=== PATIENT | male | born 1955 | race Caucasian/White ===

== ENCOUNTER 2021-11-11 01:29 | Day surgery (SDC) | payer OTHER, SELFPAY ==
[2021-10-27 13:21] VITALS: BMI 26.4
[2021-11-11 12:13] VITALS: BP 141/86; PULSE 77; RESP 18; TEMP 36.7; O2SAT 96
[2021-11-11] MEDS: LACTATED RINGERS 1,000 ML 150 ML IV CONT (12:16)
--- NOTE | 2021-11-11 12:59 | WPDGICN ---
Assessment and Plan Assessment and plan (1) Encounter for screening colonoscopy: Code(s): Z12.11 - Encounter for screening for malignant neoplasm of colon Status: Acute Assessment and Plan: Patient presents for screening colonoscopy. He appears to be at average risk for colon polyps. GI Consult Note Consult date/time: 11/11/21 12:59 HPI: Vinh Rodriguez is a 66 year old male Presents for screening colonoscopy. Patient's current weight appetite and bowel movements are normal. He denies abdominal pain. Patient has had no bleeding. Family history is noncontributory. Review of Systems Review of Systems: All systems reviewed & are unremarkable except as noted in HPI and below PMFSH Past Medical History Medical History (Updated 11/11/21 @ 13:01 by Jose Portillo MD) Environmental allergies Hypothyroid Rosacea Surgical History Surgical History History of right inguinal hernia repair 1956 History of tonsillectomy 1959 Family History Family History Father Heart disease Mother Dementia Social History Social History Smoking status: Never smoker Alcohol intake: current Drinks per week: 7 Alcohol use details: 1/2 bottle wine daily Substance use: never Substance use type: does not use Living arrangements: with family Gender identity (if verbalized by the patient): Male Sexual Orientation (if Verbalized by the Patient): Straight or Heterosexual Spiritual care concerns: No Agree to blood products: Yes Meds Home Medications and Allergies Home Medications Medication Instructions Recorded Confirmed Type loratadine 10 mg tablet 10 mg PO DAILY PRN 10/01/21 10/27/21 History ergocalciferol (vitamin D2) 1,250 1,250 mcg PO WEEKLY #12 cap 10/09/21 10/27/21 Rx mcg (50,000 unit) capsule levothyroxine 50 mcg tablet 50 mcg PO DAILY #60 tablet 10/09/21 10/27/21 Rx Allergies Allergy/AdvReac Type Severity Reaction Status Date / Time No Known Allergies Allergy Verified 11/11/21 12:12 Vital Signs Vital Signs - 24 hr 11/11/21 12:13 Temperature 98.0 F Pulse Rate 77 Respiratory Rate 18 Blood Pressure 141/86 H Pulse Oximetry 96 Exam Narrative: Physical exam reveals patient to be alert. Vital signs are stable. HEENT exam is unremarkable. Patient is anicteric. Lungs are clear to auscultation and percussion. Heart is without murmur or extra sounds. Abdominal exam bowel sounds are present soft nontender with no hepatosplenomegaly . Digital external rectal exam is normal.
[2021-11-11 13:37] VITALS: BP 106/68; PULSE 91; RESP 22; O2SAT 94
[2021-11-11 13:47] VITALS: BP 113/78; PULSE 82; RESP 21; O2SAT 97
[2021-11-11 13:57] VITALS: BP 121/74; PULSE 71; RESP 16; O2SAT 99
== END 2021-11-11 14:14 | disposition home or self-care (01) ==
PROVIDERS: PCP Family Medicine; Visit Provider Internal Medicine Gastroenterology
PROC: 0DJD8ZZ Inspection of Lower Intestinal Tract, Via Natural or Artificial Opening Endoscopic (ICD-10-PCS; CPT 45378; principal; 2021-11-11 13:30)
DX: Z12.11 Encounter for screening for malignant neoplasm of colon (principal); K64.8 Other hemorrhoids; E03.9 Hypothyroidism, unspecified
CPT/HCPCS: G0121; J2704; J7120

== ENCOUNTER 2022-05-27 11:58 | Outpatient (CLI) | payer OTHER, SELFPAY ==
[2022-05-27 18:54] LABS: Alanine Aminotransferase 24 U/L (6-50); Albumin Level 4.2 g/dL (3.5-5.1); Alkaline Phosphatase 85 U/L (38-126); Anion Gap 11 mmol/L (8-16); Aspartate Amino Transferase 50 U/L (17-59); Bilirubin,Total 0.4 mg/dL (0.2-1.3); Blood Urea Nitrogen 15 mg/dL (9-20); Calcium 8.9 mg/dL (8.4-10.2); Carbon Dioxide 27 mmol/L (22-30); Chloride 105 mmol/L (98-107); Estimated Glomerular Filt Rate > 60; Glucose 98 mg/dL (65-110); Potassium 4.7 mmol/L (3.4-5.0); Sodium 143 mmol/L (137-145)
[2022-05-27 19:30] LABS: Vitamin D 25 Hydroxy 43.8 ng/mL
== END 2022-05-27 11:59 | disposition home or self-care (01) ==
LOC: ANHGOSHLAB 11:59
PROVIDERS: PCP Family Medicine; Visit Provider Family Medicine
DX: E03.9 Hypothyroidism, unspecified (principal); E55.9 Vitamin D deficiency, unspecified
CPT/HCPCS: 36415; 80053; 82306; 84443

== ENCOUNTER 2022-10-07 09:59 | Outpatient (CLI) | payer OTHER, SELFPAY ==
[2022-10-07 19:00] LABS: Basophils Percent Auto 0.5 % (0.2-1.2); Eosinophils Percent Auto 0.5 % (0-4.4); Hematocrit 48.4 % (42.0-52.0); Hemoglobin 15.6 g/dL (14.0-18.0); Immature Granulocyte Absolute 0.01 K/mm3 (0.00-0.031); Immature Granulocyte Percent A 0.2 % (0-0.5); Lymphocytes Percent Auto 22.6 % (18.3-44.2); Mean Corpuscular HGB Conc 32.2 g/dl (32-36); Mean Corpuscular Hemoglobin 28.9 pg (26-34); Mean Corpuscular Volume 89.8 fl (80-100); Monocytes Absolute Auto 0.5 K/mm3 (0.1-0.6); Monocytes Percent Auto 7.3 % (2.6-8.5); Neutrophils Absolute Auto 4.3 K/mm3 (1.3-6.7); Neutrophils Percent Auto 68.9 % (45.5-73.1); Platelet Count Result 257 k/mm3 (150-375); Red Blood Count 5.39 M/mm3 (4.6-6.20); Red Cell Distribution Width 14.2 % (11.5-14.5); White Blood Count 6.2 K/mm3 (4.5-10.0)
[2022-10-07 19:09] LABS: Alanine Aminotransferase 22 U/L (6-50); Albumin Level 4.1 g/dL (3.5-5.1); Alkaline Phosphatase 82 U/L (38-126); Anion Gap 7 mmol/L (8-16); Aspartate Amino Transferase 35 U/L (17-59); Bilirubin,Total 0.7 mg/dL (0.2-1.3); Blood Urea Nitrogen 18 mg/dL (9-20); Calcium 8.7 mg/dL (8.4-10.2); Carbon Dioxide 29 mmol/L (22-30); Chloride 102 mmol/L (98-107); Cholesterol 218 mg/dL (0-200); Estimated Glomerular Filt Rate > 60; Glucose 84 mg/dL (65-110); HDL Direct 34 mg/dL; Potassium 4.6 mmol/L (3.4-5.0); Sodium 138 mmol/L (137-145); Triglycerides 211 mg/dL (<150)
[2022-10-07 19:20] LABS: LDL Cholesterol Direct 117 mg/dL
[2022-10-07 19:36] LABS: Prostate Specific Antigen 11.4 ng/mL (< OR = 4.0)
[2022-10-07 19:50] LABS: Vitamin D 25 Hydroxy 41.1 ng/mL
[2022-10-08 07:27] LABS: Free T4 Free Thyroxine Reflex 1.53 ng/dL (0.78-2.19)
[2022-10-08 08:09] LABS: Total Triiodothyronine (T3) 1.57 NG/ML (0.97-1.69)
== END 2022-10-07 10:00 | disposition home or self-care (01) ==
LOC: ANHGOSHLAB 10:02
PROVIDERS: PCP Family Medicine; Visit Provider Nurse Practitioner
DX: E78.5 Hyperlipidemia, unspecified (principal); Z12.5 Encounter for screening for malignant neoplasm of prostate; E03.9 Hypothyroidism, unspecified; E55.9 Vitamin D deficiency, unspecified
CPT/HCPCS: 36415; 80053; 80061; 82306; 84153; 84439; 84443; 84480; 85025; G0103

== ENCOUNTER 2022-10-13 14:29 | Outpatient (CLI) | payer OTHER, SELFPAY | END 2022-10-13 14:30 | disposition home or self-care (01) | LOC: ANHAUDIO 14:29 | PROVIDERS: PCP Family Medicine; Visit Provider Nurse Practitioner | DX: H91.90 Unspecified hearing loss, unspecified ear (principal) | CPT/HCPCS: 92557; 92567 ==

== ENCOUNTER 2023-04-07 09:53 | Outpatient (CLI) | payer OTHER, SELFPAY | END 2023-04-07 09:54 | disposition home or self-care (01) | LOC: ANHGOSHLAB 09:54 | PROVIDERS: PCP Family Medicine; Visit Provider Family Medicine | DX: E03.9 Hypothyroidism, unspecified (principal) | CPT/HCPCS: 36415; 84443 ==

== ENCOUNTER 2023-10-13 08:21 | Outpatient (CLI) | payer OTHER, SELFPAY ==
[2023-10-13 13:43] LABS: Basophils Percent Auto 0.7 % (0.2-1.2); Eosinophils Absolute Auto 0.1 K/mm3 (0-0.3); Eosinophils Percent Auto 0.9 % (0-4.4); Hematocrit 48.5 % (42.0-52.0); Hemoglobin 15.8 g/dL (14.0-18.0); Immature Granulocyte Absolute 0.02 K/mm3 (0.00-0.031); Immature Granulocyte Percent A 0.4 % (0-0.5); Lymphocytes Absolute Auto 1.72 K/mm3 (0.9-3.2); Lymphocytes Percent Auto 30.5 % (18.3-44.2); Mean Corpuscular HGB Conc 32.6 g/dl (32-36); Mean Corpuscular Hemoglobin 29.4 pg (26-34); Mean Corpuscular Volume 90.1 fl (80-100); Mean Platelet Volume 10.5 fl (7.4-10.4); Monocytes Absolute Auto 0.4 K/mm3 (0.1-0.6); Monocytes Percent Auto 7.3 % (2.6-8.5); Neutrophils Absolute Auto 3.4 K/mm3 (1.3-6.7); Neutrophils Percent Auto 60.2 % (45.5-73.1); Platelet Count Result 241 k/mm3 (150-375); Red Blood Count 5.38 M/mm3 (4.6-6.20); Red Cell Distribution Width 13.7 % (11.5-14.5); White Blood Count 5.6 K/mm3 (4.5-10.0)
[2023-10-13 14:11] LABS: Vitamin D 25 Hydroxy 28.4 ng/mL
[2023-10-13 15:07] LABS: Alanine Aminotransferase 26 U/L (6-50); Alkaline Phosphatase 87 U/L (38-126); Anion Gap 8 mmol/L (8-16); Aspartate Amino Transferase 40 U/L (17-59); Bilirubin,Total 0.6 mg/dL (0.2-1.3); Blood Urea Nitrogen 18 mg/dL (9-20); Calcium 9.2 mg/dL (8.4-10.2); Carbon Dioxide 27 mmol/L (22-30); Chloride 107 mmol/L (98-107); Cholesterol 205 mg/dL (0-200); Estimated Glomerular Filt Rate > 60; Glucose 88 mg/dL (65-110); HDL Direct 34 mg/dL; Sodium 142 mmol/L (137-145); Triglycerides 172 mg/dL (<150)
[2023-10-13 15:16] LABS: LDL Cholesterol Direct 127 mg/dL
[2023-10-13 17:36] LABS: Potassium 4.7 mmol/L (3.4-5.0)
== END 2023-10-13 08:22 | disposition home or self-care (01) ==
LOC: ANHGOSHLAB 08:23
PROVIDERS: PCP Family Medicine; Visit Provider Family Medicine
DX: E78.5 Hyperlipidemia, unspecified (principal); E03.9 Hypothyroidism, unspecified; E55.9 Vitamin D deficiency, unspecified; Z00.00 Encounter for general adult medical examination without abnormal findings; E53.8 Deficiency of other specified B group vitamins
CPT/HCPCS: 36415; 80053; 80061; 82306; 82607; 84443; 85025

== ENCOUNTER 2024-06-07 14:57 | Outpatient (CLI) | payer OTHER, SELFPAY ==
[2024-06-07 22:46] LABS: Vitamin D 25 Hydroxy 29.9 ng/mL
== END 2024-06-07 14:58 | disposition home or self-care (01) ==
LOC: ANHGOSHLAB 14:58
PROVIDERS: PCP Family Medicine; Visit Provider Family Medicine
DX: E03.9 Hypothyroidism, unspecified (principal); E55.9 Vitamin D deficiency, unspecified
CPT/HCPCS: 36415; 82306; 84443

== ENCOUNTER → 2024-09-19 11:00 | Outpatient (REF) | payer MEDICARE, SELFPAY | LOC: ANHLAB 11:00 | PROVIDERS: Visit Provider Physician Assistant Surgical | DX: L72.0 Epidermal cyst (principal) | CPT/HCPCS: 88305 ==

== ENCOUNTER 2024-11-06 08:01 | Outpatient (CLI) | payer MEDICARE, SELFPAY ==
[2024-11-06 12:13] LABS: Alanine Aminotransferase 27 U/L (6-50); Alkaline Phosphatase 89 U/L (38-126); Anion Gap 10 mmol/L (4-12); Aspartate Amino Transferase 35 U/L (17-59); Bilirubin,Total 0.6 mg/dL (0.2-1.3); Blood Urea Nitrogen 12 mg/dL (9-20); Calcium 9.1 mg/dL (8.4-10.2); Carbon Dioxide 27 mmol/L (22-30); Chloride 107 mmol/L (98-107); Cholesterol 159 mg/dL (0-200); Estimated Glomerular Filt Rate > 60; Glucose 90 mg/dL (65-110); HDL Direct 27 mg/dL; Potassium 4.8 mmol/L (3.4-5.0); Sodium 144 mmol/L (137-145); Triglycerides 145 mg/dL (<150)
[2024-11-06 12:24] LABS: LDL Cholesterol Direct 96 mg/dL
[2024-11-06 12:29] LABS: Basophils Percent Auto 0.4 % (0.2-1.2); Eosinophils Absolute Auto 0.1 K/mm3 (0-0.3); Eosinophils Percent Auto 1.3 % (0-4.4); Hematocrit 44.7 % (42.0-52.0); Hemoglobin 14.5 g/dL (14.0-18.0); Immature Granulocyte Absolute 0.02 K/mm3 (0.00-0.031); Immature Granulocyte Percent A 0.4 % (0-0.5); Lymphocytes Absolute Auto 1.19 K/mm3 (0.9-3.2); Lymphocytes Percent Auto 24.8 % (18.3-44.2); Mean Corpuscular HGB Conc 32.4 g/dl (32-36); Mean Corpuscular Hemoglobin 28.5 pg (26-34); Mean Corpuscular Volume 87.8 fl (80-100); Mean Platelet Volume 11.2 fl (7.4-10.4); Monocytes Absolute Auto 0.4 K/mm3 (0.1-0.6); Monocytes Percent Auto 7.3 % (2.6-8.5); Neutrophils Absolute Auto 3.2 K/mm3 (1.3-6.7); Neutrophils Percent Auto 65.8 % (45.5-73.1); Platelet Count Result 258 k/mm3 (150-375); Red Blood Count 5.09 M/mm3 (4.6-6.20); Red Cell Distribution Width 13.6 % (11.5-14.5); White Blood Count 4.8 K/mm3 (4.5-10.0)
[2024-11-06 15:23] LABS: Hemoglobin A1C 6.1 % (<5.7)
[2024-11-08 14:59] LABS: PSA, Free 1.2 ng/mL; PSA, Total 21.6 ng/mL (< OR = 4.0); Percent Free Prostate Spec Ag NOT CALCULATED % (calc) (>25)
== END 2024-11-06 08:02 | disposition home or self-care (01) ==
PROVIDERS: PCP Family Medicine; Visit Provider Family Medicine
DX: E78.5 Hyperlipidemia, unspecified (principal); I10 Essential (primary) hypertension; E03.9 Hypothyroidism, unspecified; R73.9 Hyperglycemia, unspecified; E55.9 Vitamin D deficiency, unspecified; R97.20 Elevated prostate specific antigen [PSA]; E53.8 Deficiency of other specified B group vitamins; Z00.00 Encounter for general adult medical examination without abnormal findings
CPT/HCPCS: 36415; 80053; 80061; 82306; 82607; 83036; 84153; 84154; 84443; 85025

== ENCOUNTER → 2024-12-14 01:52 | Day surgery (SDC) | payer MEDICARE, SELFPAY ==
--- NOTE | 2024-12-04 09:13 | PC.NURSE ---
Report to the Outpatient Waiting Room, entrance under the green pavilion located off [facility], at time _6:30 AM on date _12/14/24 . Planned Procedure Time: __8:30 AM .? Time changes happen often and if your time is changed the preop area will call you the afternoon before. - You and your visitor will be asked to self-screen and do not enter if you have any COVID symptoms. Please call surgeon if you need to reschedule. - A mask is optional within the hospital at this time. Patients may have clear liquids (water, carbonated beverages, clear teas, apple juice) until 3 hours prior to surgery ( 5:30 AM) with a maximum of 20 ounces. - No food from midnight until time of surgery and no smoking, or chewing tobacco (or any form of nicotine). No chewing gum, candy or mints. - Take only the following medications with a SIP of water on the morning of surgery: __EYE DROPS,LEVOTHYROXINE DO NOT STOP ANY OF YOUR OTHER PRESCRIPTION MEDICATIONS PRIOR TO SURGERY EXCEPT THE FOLLOWING Hold all vitamins and supplements for 3 days per anesthesiologist. LAST DOSE 12/10/24 Medications to discontinue per physician NONE Please no make-up, nail faroese, hairspray, perfume, deodorant, or body powder the day of surgery.? No jewelry (including any body piercings) or valuables the day of surgery, leave them at home.? Please take a shower or bath the night before, or the morning of, surgery with an antibacterial soap.? Wear comfortable, loose fitting clothing.? Children are encouraged to wear pajamas. - Jewelry must be removed prior to entering the operating room.? Rings and piercings that are not removed may be cut off. - The hospital will not accept responsibility for valuables.? - Please leave all valuables, including medications, at home the day of surgery. If you are going home after surgery, a licensed wrecking car driver must drive you home.? - NO public transportation without another adult if you receive anesthesia. - We recommend that an adult stay with you for 24 hours following discharge. - We also recommend that you do not drive, make important decision, drink alcoholic beverages, or take any drugs that were not prescribed by your health care provider for at least 24 hours after your discharge time. Follow any additional instructions given to you from your surgeon. Telephone instructions given to __PATIENT and asked if any additional questions and then verbalized understanding. Patient advised to call surgeon office or pre surgery nurse liaison [phone] if any additional questions.
[2024-12-04 09:29] VITALS: BMI 27.3
--- NOTE | 2024-12-13 15:30 | P.PNAN_ITS ---
Anes - Initial Pre Proc Eval Procedure: Operation Date: 12/14/24 08:30 Proposed Procedures p Trans Rectal Ultrasound Fusion Guided Prostate Biopsy - Vinh Pate MD Date/Time: 12/13/24 15:30 Surgeon: Vinh Pate MD Pre Op Diagnosis: elevated PSA Patient Data Age: 69 Gender: M Height: 1.75 m Weight: 83.95 kg Allergies Allergy/AdvReac Type Severity Reaction Status Date / Time No Known Allergies Allergy Verified 12/14/24 06:59 Home Medications ?Medication ?Instructions ?Recorded ?Confirmed ?Type cyanocobalamin (vitamin B-12) 1,000 mcg sublingual DAILY #90 tabs 10/14/23 12/04/24 Rx 1,000 mcg sublingual tablet doxycycline hyclate 20 mg tablet 20 mg PO BID 06/07/24 12/04/24 History ketorolac 0.5 % eye drops 1 drp RIGHT EYE DAILY 06/07/24 12/04/24 History metronidazole 1 % topical gel 1 applic topical DAILY 06/07/24 12/04/24 History prednisolone acetate 1 % eye 1 drp RIGHT EYE DAILY 06/07/24 12/04/24 History drops,suspension levothyroxine 75 mcg tablet 75 mcg PO DAILY #90 tabs 07/10/24 12/04/24 Rx cetirizine 10 mg tablet 10 mg PO DAILY 11/02/24 12/04/24 History cholecalciferol (vitamin D3) 50 50 mcg PO DAILY #90 tabs 11/02/24 12/04/24 Rx mcg (2,000 unit) tablet multivitamin (Daily Multi-Vitamin 1 tablet PO DAILY 11/02/24 12/04/24 History tablet) Patient hx anesthesia problems: none Family hx anesthesia problems: none Results Review: All pre-operative results and documents have been reviewed as part of the pre- operative evaluation. [facility] Past Medical History Medical History Vitamin B12 deficiency Retinal tear of right eye Hyperlipidemia Vitamin D deficiency Hypothyroidism (acquired) Elevated PSA Environmental allergies Rosacea Surgical History Surgical History History of epidermal inclusion cyst excision (~09/2024) History of repair of retinal tear by laser photocoagulation (~09/2022) Right History of tonsillectomy (~1959) 1960 History of right inguinal hernia repair (~1956) 1956 Family History Family History Father Heart disease Mother Dementia Social History Social History Social History: Caffeine-coffee/soda Smoking status: Never smoker Alcohol intake: current Drinks per week: 10 Alcohol use details: WINE Substance use: never Substance use type: does not use Lack of Transportation: No Lack of Food: Never True Current Housing: I Have Housing Concerned About Future Housing: No Difficulty Paying Gas/Electric Bills: No Difficulty Paying for Meds: No Currently Unemployed: No Education: Decline to Answer Difficulty w/ Childcare or Family Care: No Living arrangements: with family Occupation/Education: occupation Gender identity (if verbalized by the patient): Male Sexual Orientation (if Verbalized by the Patient): Straight or Heterosexual Spiritual care concerns: No Agree to blood products: Yes Anes - Eval Final PreProcedure Day of Procedure 12/13/24 15:30 Patient weight: overweight Heart: regular rate and rhythm Lungs: clear to auscultation Airway: Mallampati scale class II Neurological: alert and oriented Last oral intake: >/= 8 hours ASA classification: III Emergent: no Anesthetic plan: proceed Anesthesia type and monitoring: general LMA and standard monitoring Results Review: All pre-operative results and documents have been reviewed as part of the pre- operative evaluation. Informed Consent: The patient's anesthetic plan and its attendant risks and benefits were discussed with the patient/family/POA. Questions were solicited and answers provided to the satisfaction of the patient/family/POA.
--- NOTE | 2024-12-14 06:22 | WPDHPUPDATE1 ---
History and Physical Update Update Date/Time: 12/14/24 06:22 History and Physical has been reviewed, including an updated exam of the patient. There are NO changes in the patient's condition. Risks, benefits, and alternatives have been discussed and questions answered. Patient agrees to proceed with procedure.
[2024-12-14 07:13] VITALS: BP 116/74; PULSE 81; TEMP 36.2; O2SAT 96; BMI 28.2
[2024-12-14] MEDS: LACTATED RINGERS 1,000 ML 30 ML IV CONT (07:18)
[2024-12-14 08:46] VITALS: BP 121/108; PULSE 77; RESP 16; O2SAT 94
--- NOTE | 2024-12-14 08:58 | P.OP_ITS ---
Procedure Note - Detailed Date of Procedure 12/14/24 Pre-op Diagnosis Elevated PSA Post-op Diagnosis Same Procedure Performed [place] fusion biopsy Surgeon Vinh Pate MD Anesthesia General Description of Procedure Patient is brought to the operative suite where he is positioned in the left lateral position. Systemic sedation is administered per the anesthesia department. Surgical time-out is undertaken and it's verified the patient has received preoperative antibiotics. Transrectal ultrasonography is undertaken with a standard transrectal probe. The [employer] system is used to superimpose his previously obtained mpMRI prostate images on the real-time transrectal ultrasond images. Prostate volume is calculated at []cc. On the previous mpMRI there are 2 regions of interest. Using the transrectal needle design for prostate biopsies 3 cores from each region of interest her obtain. We then proceeded with a standard 12 core prostate biopsy. Transrectal probe was removed and patient taken to recovery room having tolerated the procedure well. Blood loss was less than 10 cc. Drains No Packing Yes Pathology Yes Complications No immediate complications Condition Stable
[2024-12-14 09:15] VITALS: BP 118/86; PULSE 73; RESP 16; O2SAT 98
[2024-12-14 09:40] VITALS: BP 118/73; PULSE 66; RESP 18
== END | disposition home or self-care (01) ==
PROVIDERS: PCP Family Medicine; Visit Provider Urology
PROC: (CPT 55700; principal; 2024-12-14 08:30)
DX: C61 Malignant neoplasm of prostate (principal); N39.41 Urge incontinence; N52.01 Erectile dysfunction due to arterial insufficiency
CPT/HCPCS: 55700; 88342; G0416; J0696; J2704; J7120

== ENCOUNTER 2025-01-04 09:29 | Outpatient (CLI) | payer MEDICARE, SELFPAY ==
--- NOTE | ~2025-01-04 | NM_ITS ---
EXAMINATION: NM bone scan whole body DATE: 01/04/2025 13:52 INDICATION: Prostate cancer TECHNIQUE: 24.5 mCi Tc-99m HDP was administered intravenously. Delayed whole-body scintigrams were o btained. COMPARISON: CT abdomen pelvis dated 01/04/2025 FINDINGS: Mild likely degenerative joint centered uptake at the bilateral clavicular and sternoclavicular joint s. Single atypical small focus of mild uptake at the posterior right fifth rib. Foci of increased upt pastor at the maxilla most typically related to dental or sinus disease. No other suspicious foci of abn ormal bone uptake. IMPRESSION: 1. Single atypical small focus of mild uptake at the posterior right fifth rib. Although this could r epresent a single isolated focus of metastatic disease this would be atypical with no other suspiciou s bone lesions identified. Alternatively this could be related to old fracture. Could consider furthe r evaluation with radiographs or low dose chest CT. Reviewed, dictated and finalized at location A. IMPRESSION: 1. Single atypical small focus of mild uptake at the posterior right fifth rib. Although this could represent a single isolated focus of metastatic disease th is would be atypical with no other suspicious bone lesions identified. Alternat ively this could be related to old fracture. Could consider further evaluation with radiographs or low dose chest CT.
--- NOTE | ~2025-01-04 | CT_ITS ---
CT of the Abdomen and Pelvis: Indication: Prostate cancer Technique: 2.5 mm axial scans were obtained through the abdomen and pelvis following intravenous adm inistration of 100 cc of Omnipaque 350. Dose reduction technique was used on this scan by utilizing a utomated exposure control and iterative reconstruction technique. The dose-length product (DLP) was 6 76.77 mGy-cm. Findings: Scans through the lung bases are unremarkable. Hepatic cysts are present. The spleen, pancreas, gallbladder, adrenals and kidneys are within normal limits. No evidence of aortic aneurysm. No lymphadenopathy. No bowel obstruction or bowel wall thickening. There is no evidence to suggest acute appendicitis. Images through the pelvis were performed. Urinary bladder unremarkable. No pelvic mass seen. No ascit es. Impression: No evidence of metastatic disease. Reviewed, dictated and finalized at [facility]. Impression: No evidence of metastatic disease.
[2025-01-04 09:55] LABS: Estimated Glomerular Filt Rate 60
== END 2025-01-04 09:30 | disposition home or self-care (01) ==
PROVIDERS: PCP Family Medicine; Visit Provider Urology
DX: C61 Malignant neoplasm of prostate (principal)
CPT/HCPCS: 74177; 78306; A9503; Q9967

== ENCOUNTER 2025-05-03 10:58 | Outpatient (CLI) | payer MEDICARE, SELFPAY ==
[2025-05-03 13:15] LABS: Alanine Aminotransferase 33 U/L (6-50); Albumin Level 4.6 g/dL (3.5-5.1); Alkaline Phosphatase 85 U/L (38-126); Anion Gap 10 mmol/L (4-12); Aspartate Amino Transferase 45 U/L (17-59); Bilirubin,Total 0.8 mg/dL (0.2-1.3); Blood Urea Nitrogen 17 mg/dL (9-20); Calcium 9.6 mg/dL (8.4-10.2); Carbon Dioxide 26 mmol/L (22-30); Chloride 106 mmol/L (98-107); Estimated Glomerular Filt Rate > 60; Glucose 99 mg/dL (65-110); Potassium 5.4 mmol/L (3.4-5.0); Sodium 142 mmol/L (137-145); Total Protein 7.7 g/dL (6.3-8.2)
[2025-05-03 13:38] LABS: Thyroid Stimulating Hormone Reflex 3.110 uIU/mL (0.465-4.68)
[2025-05-03 13:56] LABS: Hemoglobin A1C 5.9 % (<5.7)
== END 2025-05-03 10:59 | disposition home or self-care (01) ==
LOC: ANHGOSHLAB 10:58
PROVIDERS: PCP Family Medicine; Visit Provider Family Medicine
DX: R73.03 Prediabetes (principal); I10 Essential (primary) hypertension; E03.9 Hypothyroidism, unspecified; E55.9 Vitamin D deficiency, unspecified
CPT/HCPCS: 36415; 80053; 82306; 83036; 84443

== ENCOUNTER 2025-05-21 08:19 | Outpatient (CLI) | payer MEDICARE, SELFPAY ==
[2025-05-21 13:24] LABS: Anion Gap 8 mmol/L (4-12); Blood Urea Nitrogen 19 mg/dL (9-20); Calcium 9.2 mg/dL (8.4-10.2); Carbon Dioxide 26 mmol/L (22-30); Chloride 105 mmol/L (98-107); Estimated Glomerular Filt Rate > 60; Glucose 94 mg/dL (65-110); Potassium 4.3 mmol/L (3.4-5.0); Sodium 139 mmol/L (137-145)
== END 2025-05-21 08:20 | disposition home or self-care (01) ==
LOC: ANHGOSHLAB 08:20
PROVIDERS: PCP Family Medicine; Visit Provider Family Medicine
DX: E87.5 Hyperkalemia (principal)
CPT/HCPCS: 36415; 80048